=== PATIENT | female | born 1975 | race Caucasian/White ===

== ENCOUNTER → 2018-07-31 | Outpatient (CLI) | payer OTHER ==
[2016-11-28 05:55] VITALS: BMI 27.4
[~2018-07-31] MED LIST: BIRTH CONTROL PILLS PO; IBUP800T37 PO; LOR5/325 PO; OXYC-373 PO; PREN-127 PO
--- NOTE | 2018-07-31 15:06 | RADIOLOGY IMAGING REPORT ---
FACILITY: [facility] - [place] PATIENT NAME: ALONDRA PALOMINO : [id number] MR: [id number] V: [id number] EXAM DATE: [id number] ORDERING PHYSICIAN: RUDOLPH BOURGEOIS TECHNOLOGIST: Quin Carney PROCEDURE:BILATERAL DIGITAL SCREENING MAMMOGRAM WITH CAD ASSISTED INTERPRETATION & 3D TOMOSYNTHESIS COMPARISON:Prior mammograms dated 01/29/17, 05/26/12, 04/14/12 INDICATIONS:screening FINDINGS: The breasts are heterogeneously dense which can obscure small masses. DIAGNOSTIC CATEGORY 1--NEGATIVE. RECOMMENDATIONS: ROUTINE MAMMOGRAM AND CLINICAL EVALUATION. IMPRESSION: BIRADS 1: Negative. No significant abnormality is seen. Dictated by: Ivonne Medley M.D. on 07/31/2018 at 11:15 Transcribed by: CHARLEY on 07/31/2018 at 14:25 Approved by: Ivonne Medley M.D. on 07/31/2018 at 15:05 [facility]
== END ==
LOC: MAMO 00:20
PROVIDERS: ATTEND Family Medicine
DX: Z12.31 Encounter for screening mammogram for malignant neoplasm of breast (principal)
CPT/HCPCS: 77063; 77067

== ENCOUNTER 2018-12-15 19:38 | Emergency (ER) | payer OTHER ==
[2016-11-28 05:55] VITALS: Wt 81.6 kg
[2018-12-15] MEDS ORDERED: NS(*) 0.9% 1000 ML BAG 1,000 ML IV ONE (20:00)
--- NOTE | 2018-12-15 20:11 | ER Report ---
History and Physical Time Seen By MD: 19:46 Hx. of Stated Complaint: SENT FROM URGENT CARE WITH FEVER OF 103, COUGH, SWEATS, NOT FEELING WELL FOR TWO WEEKS. DAUGHTER DIAGNOSISED WITH STREP TODAY AND PUT PT ON AMOX ALSO. TOOK TWO DOSES SO FAR TODAY. TAKING MOTRIN TODAY, LAST DOSE AT 181 TONIGHT HPI/ROS CHIEF COMPLAINT: Fever HISTORY OF PRESENT ILLNESS: 43-year-old female referred from urgent care for fever. Patient reports nonproductive cough for 2 weeks. States this is been ongoing and is without shortness of breath. Patient has sick contacts of daughter who was diagnosed with strep today, as well as child with [id number]-piz-mouth. Patient notes that she woke up with fever this morning and chills. She has also had muscle aches, headache that is not as severe as migraines, without neck stiffness. Patient denies shortness breath, chest pain, nausea or vomiting, abdominal pain, UTI symptoms, diarrhea, rash, swelling. She has had no recent travel. Her primary doctor prescribed her amoxicillin which she started taking this morning, because of the strep throat sick contacts. She has mild sore throat but notes no swelling. REVIEW OF SYSTEMS: Constitutional: above Eyes: No discharge. ENT: above Cardiovascular: No chest pain, no palpitations. Respiratory: above Gastrointestinal: No abdominal pain, no vomiting. Genitourinary: no dysuria Musculoskeletal: above Skin: No rashes. Neurological: above Remainder of the 14 system rev: Yes Allergies: Coded Allergies: Sulfa (Sulfonamide Antibiotics) (Unverified Allergy, Unknown, 12/15/18) azithromycin (Unverified Allergy, Unknown, 12/15/18) Home Meds Active Scripts Ibuprofen (IBUPROFEN) 800 Mg Tablet, 1 TAB PO Q8H, #30 TAB 0 Refills Take with food every 8 hours. Prov:MIGUEL A MACEDO MD 11/29/16 Discontinued Reported Medications Vits W-Ca,Fe,Fa(<1MG) ( VITAMINS) 1 Each Tablet, 1 EACH PO DAILY, TAB 11/28/16 Discontinued Scripts Oxycodone Hcl/Acetaminophen (OXYCODONE-ACETAMINOPHEN 5-325) 1 Each Tablet, 1-2 EACH PO Q4H PRN for PAIN, #30 TAB 0 Refills TAKE 1-2 TABLET NEEDED FOR PAIN - NO CLOSER THAN EVERY 4 HOURS. Prov:MIGUEL A MACEDO MD 11/29/16 Reviewed Nurses Notes: Yes Hx Smoking: No Smoking Status: Never Smoker Exposure to Second Hand Smoke?: No Hx Substance Use Disorder: No Hx Alcohol Use: No Constitutional Vital Sign - Last 24 Hours 12/15/18 12/15/18 12/15/18 12/15/18 19:38 19:43 19:43 19:53 Temp 102.3 Pulse ??? 98 99 Resp 14 B/P (MAP) 109/55 (73) 109/55 Pulse Ox 91 91 O2 Delivery Room Air 12/15/18 12/15/18 12/15/18 12/15/18 20:00 20:08 20:23 20:30 Pulse 99 100 B/P (MAP) 76/63 (67) 93/57 (69) 99/57 (71) Pulse Ox 90 91 12/15/18 12/15/18 20:38 21:01 Temp 99.5 Pulse 91 Pulse Ox 88 Physical Exam General Appearance: The patient is alert, has no immediate need for airway protection and no signs of toxicity. Eyes: Pupils equal and round no pallor or injection. ENT, Mouth: Mucous membranes are moist. Respiratory: There are no retractions, lungs are clear to auscultation. Cardiovascular: Regular rate and rhythm. no m/r/g Gastrointestinal: Abdomen is soft and non tender, no masses Neurological: alert, oriented x 3, no gross focal deficits Skin: Warm and dry, no rashes. Musculoskeletal: Neck is supple non tender. Extremities are nontender, nonswollen and have full range of motion. DIFFERENTIAL DIAGNOSIS: After history and physical exam differential diagnosis was considered for adult fever including but not limited to viral syndromes including influenza, urinary tract infection, pneumonia and sepsis. Medical Decision Making Data Points Result Diagram: 12/15/18 1950 12/15/181949 Laboratory Hematology Test 12/15/18 19:50 White Blood Count 10.6 k/uL (4.5-11.0) Red Blood Count 4.76 M/uL (4.17-5.56) Hemoglobin 15.3 g/dL (12.0-16.0) Hematocrit 43.6 % (34.0-47.0) Mean Corpuscular Volume 91.5 fL (80.0-96.0) Mean Corpuscular Hemoglobin 32.2 pg (26.0-33.0) Mean Corpuscular Hemoglobin Concent 35.2 g/dL (32.0-36.0) Red Cell Distribution Width 12.3 % (11.5-14.5) Platelet Count 209 K/uL (150-450) Mean Platelet Volume 8.9 fL (7.2-11.1) Neutrophils (%) (Auto) 83.3 % (39.4-72.5) H Lymphocytes (%) (Auto) 5.4 % (17.6-49.6) L Monocytes (%) (Auto) 11.1 % (4.1-12.4) Eosinophils (%) (Auto) 0.1 % (0.4-6.7) L Basophils (%) (Auto) 0.1 % (0.3-1.4) L Nucleated RBC Relative Count (auto) 0.0 /100WBC Neutrophils # (Auto) 8.8 K/uL (2.0-7.4) H Lymphocytes # (Auto) 0.6 K/uL (1.3-3.6) L Monocytes # (Auto) 1.2 K/uL (0.3-1.0) H Eosinophils # (Auto) 0.0 K/uL (0.0-0.5) Basophils # (Auto) 0.0 K/uL (0.0-0.1) Nucleated RBC Absolute Count (auto) 0.00 K/uL Chemistry Test 12/15/18 19:50 Sodium Level 137 mmol/L (137-145) Potassium Level 3.4 mmol/L (3.5-5.0) Chloride Level 104 mmol/L (98-107) Carbon Dioxide Level 22 mmol/L (22-31) Blood Urea Nitrogen 16 mg/dl (7-18) Creatinine 0.80 mg/dl (0.52-1.04) Glomerular Filtration Rate Calc > 60.0 Random Glucose 108 mg/dl (75-110) Lactate 0.9 mmol/L (0.7-2.1) Calcium Level 9.2 mg/dl (8.4-10.2) Human Chorionic Gonadotropin, Qual Negative (NEGATIVE) Serology Test 12/15/18 19:50 Group A Streptococcus (PCR) Negative (NEGATIVE) Urinalysis Test 12/15/18 19:47 Urine Color Yellow Urine Clarity Clear Urine pH 6.0 pH (4.8-9.5) Urine Specific [place] 1.020 Urine Protein Negative mg/dL (NEGATIVE) Urine Glucose (UA) Negative mg/dL (NEGATIVE) Urine Ketones Negative mg/dL (NEGATIVE) Urine Blood Negative (NEGATIVE) Urine Nitrite Negative (NEGATIVE) Urine Bilirubin Negative (NEGATIVE) Urine Urobilinogen Negative mg/dL (0.2-1.9) Urine Leukocyte Esterase Trace (NEGATIVE) Urine RBC <1 /HPF (0-2/HPF) Urine WBC <1 /HPF (0-5/HPF) Urine Squamous Epithelial Cells Many /LPF (</=FEW) Urine Transitional Epithelial Cells Few /LPF (NONE-FEW) Urine Bacteria Negative /HPF (NONE-FEW) Urine Mucus None /HPF (NONE-FEW) ED Course/Re-evaluation ED Course 43-year-old female presents with fever. She was sent over from urgent care for concern of sepsis. Patient is nontoxic-appearing, has no findings of sepsis on evaluation and labs, has no bacterial focus of illness. Findings most consistent with viral, however patient was placed on amoxicillin by primary physician, which will affect the rapid strep. Recommend she continues this and recommend close follow-up with 2 day reevaluation and strict return precautions. Decision to Disposition Date: Dec 15, 2018 Decision to Disposition Time: 21:20 Depart Departure Latest Vital Signs Vital Signs Date Time Temp Pulse Resp B/P (MAP) Pulse Ox O2 Delivery O2 Flow Rate FiO2 12/15/18 21:01 99.5 12/15/18 20:38 91 88 12/15/18 20:30 99/57 (71) 12/15/18 19:43 14 Room Air Impression: Primary Impression: Fever Condition: Improved Disposition: HOME OR SELF-CARE Referrals: [facility] (PCP) Patient Instructions: Fever in Adults (ED) Additional Instructions: Please return if you are feeling worse despite ibuprofen/tylenol, or any concer ns. As we discussed, I recommend continuing the amoxicillin that your primary doctor started, to complete the course. Problem Qualifiers Primary Impression: Fever Fever type: unspecified Qualified Codes: R50.9 - Fever, unspecified WESLEY DOYLE MD Dec 15, 2018 20:11
[2018-12-15 20:24] LABS: PLATELET COUNT, AUTOMATED 209 K/uL (150-450)
[2018-12-15 20:30] VITALS: BP 99/57
--- NOTE | 2018-12-15 22:17 | RADIOLOGY IMAGING REPORT ---
[facility] PATIENT NAME: Domonique Erickson : 1975 MR: [id number] V: [id number] EXAM DATE: ORDERING PHYSICIAN: WESLEY DOYLE TECHNOLOGIST: Location: [facility] - [place] Patient: Domonique Erickson : 1975 Visit/Account:[id number] Date of Sevice: 12/15/2018 Examination: CHEST PA LAT Comparison: None. History: Cough and fever. Findings: Cardiac and hilar contour size is normal. Mild hyperexpansion. No consolidation, nodule, or peribronchial inflammation. No pneumothorax, edema, or effusion. Osseous structures are intact. IMPRESSION: No findings of acute cardiopulmonary disease. Report Dictated By: Joel Schaffer MD at 12/15/2018 10:07 PM Report E-Signed By: Joel Schaffer MD at 12/15/2018 10:10 PM WSN:[id number]
== END 2018-12-15 21:26 | disposition home or self-care (01) ==
LOC: ER 20:01
DX: R50.9 Fever, unspecified (principal)
CPT/HCPCS: 71046; 81001; 83605; 84703; 85025; 87653; 96360; 99283; J7030; 82310; 82374; 82435; 82565; 82947; 84132; 84295; 84520